=== PATIENT | female | born 1985 | race Caucasian/White ===

== ENCOUNTER 2020-09-14 10:23 | Emergency (ER) | payer OTHER ==
[~2020-09-14] VITALS: Ht 165.1 cm; Wt 68.1 kg
[2020-09-14 11:33] LABS: MICROSCOPIC NOT IND
[2020-09-14 11:34] LABS: BASOPHILS % (AUTO) 1 % (0-1); EOSINOPHILS % (AUTO) 0 % (1-7); LYMPHOCYTES % (AUTO) 31 % (22-44); MEAN CORPUSCULAR HEMOGLOBIN 31.3 pg (27.0-34.8); MEAN CORPUSCULAR HGB CONC 34.3 g/dL (32.4-35.8); MEAN PLATELET VOLUME 9.8 fL (7.4-10.4); MONOCYTES % (AUTO) 6 % (2-9); NEUTROPHILS % (AUTO) 61 % (42-75); PLATELET COUNT 186 x10^3/uL (130-400); RED BLOOD COUNT 4.82 x10^6/uL (3.82-5.3); RED CELL DISTRIBUTION WIDTH 12.2 % (9.6-15.2)
[2020-09-14 11:37] LABS: ALBUMIN 4.3 g/dL (3.4-5.0); ANION GAP 8 mmol/L (5-15); CALCIUM 8.6 mg/dL (8.5-10.1); CHLORIDE 107 mmol/L (98-107); MD NO
[2020-09-14 11:55] LABS: ALANINE AMINOTRANSFERASE 20 U/L (12-78); ALKALINE PHOSPHATASE 46 U/L (45-117); BILIRUBIN,TOTAL 1.8 mg/dL (0.2-1.0); CREATININE 0.74 mg/dL (0.55-1.02); TOTAL PROTEIN 7.8 g/dL (6.4-8.2)
[2020-09-14 12:29] VITALS: BP 131/64
== END 2020-09-14 12:54 | disposition home or self-care (01) ==
LOC: ED 12:18
DX: O20.0 Threatened abortion (principal); Z3A.13 13 weeks gestation of pregnancy
CPT/HCPCS: 36415; 76801; 80053; 81003; 84702; 85025; 86901; 99284

== ENCOUNTER 2021-05-08 08:25 | Inpatient (IN) | payer OTHER, BC ==
[~2021-05-08] VITALS: Ht 165.1 cm; Wt 81.8 kg
[2021-05-09] MEDS ORDERED: NEWBORN KIT ONE (09:21)
[2021-05-09] MEDS ORDERED: OXYTOCIN 30U/ 0.9% NaCL 500ML 500 ML ONE (09:21)
[2021-05-09] MEDS ORDERED: FENTANYL PF 100 MCG/2ML IVPush PRN (09:30)
[2021-05-09] MEDS ORDERED: OXYTOCIN 30U/ 0.9% NaCL 500ML 500 ML IV ONE (09:30)
[2021-05-09] MEDS ORDERED: ONDANSETRON 2MG/ML, 2ML IVPush PRN ×2 (09:30→11:30)
[2021-05-09] MEDS ORDERED: D5%-LACTATED RINGERS 1,000 ML IV SCH (09:30)
[2021-05-09] MEDS ORDERED: LACTATED RINGERS 1,000 ML IV SCH ×2 (09:30→11:30)
[2021-05-09] MEDS ORDERED: CALCIUM CARBONATE 500 MG TAB.CHEW PO PRN (09:30)
[2021-05-09] MEDS ORDERED: PENICILLIN GK 5,000,000 UNITS in DEXTROSE 5% 100 ML IVPB ONE (09:30)
[2021-05-09] MEDS ORDERED: TERBUTALINE 1 MG/ML, 1ML IVPush PRN (09:30)
[2021-05-09] MEDS ORDERED: OXYTOCIN 30U/ 0.9% NaCL 500ML 500 ML IV PRN (09:30)
[2021-05-09] MEDS ORDERED: TERBUTALINE 1 MG/ML, 1ML SQ PRN (09:30)
[2021-05-09 10:00] LABS: BASOPHILS % (AUTO) 0 % (0-1); EOSINOPHILS % (AUTO) 0 % (1-7); LYMPHOCYTES % (AUTO) 14 % (22-44); MEAN CORPUSCULAR HEMOGLOBIN 30.2 pg (27.0-34.8); MEAN CORPUSCULAR HGB CONC 34.3 g/dL (32.4-35.8); MEAN PLATELET VOLUME 9.7 fL (7.4-10.4); MONOCYTES % (AUTO) 7 % (2-9); NEUTROPHILS % (AUTO) 79 % (42-75); PLATELET COUNT 144 x10^3/uL (130-400); RED CELL DISTRIBUTION WIDTH 14.4 % (9.6-15.2)
[2021-05-09 10:01] VITALS: BP 108/69
[2021-05-09] MEDS ORDERED: BUPIVACAINE 0.25% ONE (11:11)
[2021-05-09] MEDS ORDERED: FENTANYL/BUPIV./NS/PF 250 ML EPIDCONT ONE (11:12)
[2021-05-09] MEDS ORDERED: FENTANYL/BUPIV./NS/PF 250 ML EPIDCONT SCH (11:30)
[2021-05-09] MEDS ORDERED: NALOXONE 0.4 MG/ML, 1ML IVPush PRN (11:30)
[2021-05-09] MEDS ORDERED: LACTATED RINGERS 1,000 ML IVBOLUS PRN (11:30)
[2021-05-09] MEDS ORDERED: EPHEDRINE 50 MG/ML, 1ML IVPush PRN (11:30)
[2021-05-09] MEDS ORDERED: DIPHENHYDRAMINE 50 MG/ML, 1ML IVPush PRN (11:30)
[2021-05-09] MEDS ORDERED: PENICILLIN GK 2,500,000 UNITS in DEXTROSE 5% 100 ML IVPB SCH (13:00)
[2021-05-09] MEDS ORDERED: SIMETHICONE 80 MG CHEW TAB PO PRN (14:00)
[2021-05-09] MEDS ORDERED: ACETAMINOPHEN 325 MG TABLET PO PRN (14:00)
[2021-05-09] MEDS ORDERED: MISOPROSTOL 200 MCG TABLET PO PRN (14:00)
[2021-05-09] MEDS ORDERED: ONDANSETRON 2MG/ML, 2ML IV PRN (14:00)
[2021-05-09] MEDS: IBUPROFEN 600 MG TABLET PO PRN (15:38)
[2021-05-09] MEDS: OXYTOCIN 30U/ 0.9% NaCL 500ML 500 ML IV SCH (15:39)
[2021-05-09 16:40] VITALS: BP 106/67
[2021-05-09 17:30] VITALS: BP 107/65
[2021-05-09] MEDS: OXYcodone/APAP 5/325MG TABLET PO PRN ×2 (19:23→20:12)
[2021-05-09 19:40] VITALS: BP 108/62
[2021-05-09] MEDS: DOCUSATE 100 MG CAPSULE PO PRN (20:12)
[2021-05-09 22:13] LABS: BASOPHILS % (AUTO) 0 % (0-1); EOSINOPHILS % (AUTO) 1 % (1-7); LYMPHOCYTES % (AUTO) 14 % (22-44); MEAN CORPUSCULAR HEMOGLOBIN 30.2 pg (27.0-34.8); MEAN CORPUSCULAR HGB CONC 34.1 g/dL (32.4-35.8); MEAN PLATELET VOLUME 10.1 fL (7.4-10.4); MONOCYTES % (AUTO) 7 % (2-9); NEUTROPHILS % (AUTO) 79 % (42-75); PLATELET COUNT 145 x10^3/uL (130-400); RED BLOOD COUNT 3.71 x10^6/uL (3.82-5.3); RED CELL DISTRIBUTION WIDTH 14.5 % (9.6-15.2)
[2021-05-10 00:15] VITALS: BP 97/62
[2021-05-10] MEDS: OXYcodone/APAP 5/325MG TABLET PO PRN ×3 (00:33→12:10)
[2021-05-10] MEDS: IBUPROFEN 600 MG TABLET PO PRN ×2 (00:33→07:59)
[2021-05-10] MEDS: OXYTOCIN 30U/ 0.9% NaCL 500ML 500 ML IV SCH ×2 (01:45)
[2021-05-10 04:08] VITALS: BP 93/61
[2021-05-10 07:27] VITALS: BP 94/59
[2021-05-10] MEDS: DOCUSATE 100 MG CAPSULE PO PRN (08:01)
[2021-05-10] MEDS ORDERED: PRENATAL VIT/IRON/FA 1 EACH TABLET PO SCH (09:00)
[2021-05-10 12:12] VITALS: BP 93/58
[2021-05-10] MEDS ORDERED: IBUP-1222 PO (14:06)
== END 2021-05-10 14:15 | disposition home or self-care (01) | DRG 807 ==
LOC: LDIP 05-09 09:12 → 2NW 05-09 16:25
PROVIDERS: ADMIT Obstetrics & Gynecology; ATTEND Obstetrics & Gynecology
PROC: 10E0XZZ Delivery of Products of Conception, External Approach (ICD-10-PCS; principal; 2021-05-09)
PROC: 10907ZC Drainage of Amniotic Fluid, Therapeutic from Products of Conception, Via Natural or Artificial Opening (ICD-10-PCS; 2021-05-09)
PROC: 0HQ9XZZ Repair Perineum Skin, External Approach (ICD-10-PCS; 2021-05-09)
PROC: 3E0R3BZ Introduction of Anesthetic Agent into Spinal Canal, Percutaneous Approach (ICD-10-PCS; 2021-05-09)
PROC: 00HU33Z Insertion of Infusion Device into Spinal Canal, Percutaneous Approach (ICD-10-PCS; 2021-05-09)
DX: O77.0 Labor and delivery complicated by meconium in amniotic fluid (principal); Z37.0 Single live birth; O99.824 Streptococcus B carrier state complicating childbirth; O99.344 Other mental disorders complicating childbirth; F41.9 Anxiety disorder, unspecified; Z20.822 Contact with and (suspected) exposure to COVID-19; Z3A.39 39 weeks gestation of pregnancy; O70.0 First degree perineal laceration during delivery
CPT/HCPCS: 36415; 85025; 86592; 86850; 86900; 87635; G0378; J2540; J2590; J3010; J7120